=== PATIENT | male | born 1940 | race Caucasian/White ===

== ENCOUNTER → 2020-06-12 07:51 | Outpatient (CLI) | payer SELFPAY ==
[2020-06-07 10:09] VITALS: BMI 26.4
--- NOTE | 2020-06-12 07:52 | ECHOD_ITS ---
Version 2 Reason For Study: AFIB Procedure This was a 2D Doppler, Color Flow transthoracic echocardiogram. Exam performed in department. Left Ventricle Normal LV size. Left ventricular systolic function is normal. The estimated ejection fraction is 55 %. No regional wall motion abnormalities noted. Right Ventricle Normal RV size. Normal systolic function. Atria Normal left atrium. Normal right atrium. Mitral Valve Normal mitral valve. Mild (1+) eccentric mitral valve insufficiency. Tricuspid Valve Normal tricuspid valve. Mild (1+) tricuspid valve insufficiency. Pulmonary artery systolic pressure is 35 mmHg. Aortic Valve Trisinus/trileaflet aortic valve. Mild (1+) aortic valve insufficiency. Pericardium/Pleural No pericardial effusion. MMode/2D Measurements & Calculations LVIDd: 4.7 cm IVSd: 1.2 cm Ao root diam: 3.6 cm LVIDs: 3.1 cm LVPWd: 1.1 cm RVDd: 3.7 cm FS: 34.6 % LAV(MOD-sp4): 64.2 ml LA dimension(2D): 5.1 cm LA A4 area: 22.8 cm2 RA A4 area: 17.3 cm2 Time Measurements MV dec time: 0.25 sec Doppler Measurements & Calculations MV E max jaxon: 58.6 cm/sec Lat Peak E' Jaxon: 3.9 cm/sec Med Peak E' Jaxon: 5.4 cm/sec MV A max jaxon: 50.5 cm/sec E/E' lat: 15.1 E/E' med: 10.9 MV E/A: 1.2 Ao V2 max: 118.0 cm/sec AI max jaxon: 477.3 cm/sec LV V1 max: 82.7 cm/sec Ao max P.6 mmHg AI max P.2 mmHg LV V1 max P.7 mmHg Ao V2 mean: 90.5 cm/sec LV V1 mean P.4 mmHg Ao mean P.5 mmHg AI dec slope: 294.7 cm/sec2 LV V1 mean: 55.0 cm/sec Ao V2 VTI: 26.5 cm AI P1/2t: 474.3 msec LV V1 VTI: 16.7 cm PA V2 max: 135.7 cm/sec PI end-d jaxon: 115.8 cm/sec TR max jaxon: 280.1 cm/sec TR max P.4 mmHg Interpretation Summary Normal LV size. Left ventricular systolic function is normal. The estimated ejection fraction is 55 %. Mild (1+) eccentric mitral valve insufficiency. Mild (1+) aortic valve insufficiency. Pulmonary artery systolic pressure is 35 mmHg. Ordering Physician: Vin Porter Referring Physician: JOSH MORTENSEN Performed By: Thania Rodriguez, RDCS, RVT
== END ==
PROVIDERS: PCP Family Medicine; Referring Provider Internal Medicine Cardiovascular Disease; Visit Provider Internal Medicine Cardiovascular Disease
DX: I48.91 Unspecified atrial fibrillation (principal); I48.92 Unspecified atrial flutter; I34.0 Nonrheumatic mitral (valve) insufficiency
CPT/HCPCS: 93225; 93226; 93306

== ENCOUNTER → 2022-10-06 | Outpatient (CLI) | payer SELFPAY, OTHER ==
--- NOTE | 2022-10-06 11:30 | MRI_ITS ---
INDICATION: LBP, bilat radiculopathy-hips EXAMINATION: MRI - MR Spine Lumbar W/O Contrast TECHNIQUE: Multiplanar and multisequence MR images of the lumbar spine. IV Contrast Dosage and Agent: None. COMPARISON: None. FINDINGS: VERTEBRAE: Vertebral body heights are preserved. Normal vertebral bodies and posterior elements. VERTEBRAL ALIGNMENT: No spondylolisthesis. There is preservation of the normal lumbar lordosis. CORD: Normal position and signal intensity of the conus medullaris. There is mild osteoporotic compression fracture of T12 with 20% decreased height of vertebral body. There is bone marrow edema noted on STIR images. At L1-2, Endplate spondylosis. Decreased disc height and small circumferential disc bulge. Degenerative changes of the bilateral facet joints. Mild narrowing of the central canal and bilateral intervertebral neural foramina. At L2-3, postsurgical changes from prior laminectomy. There is 7 mm retrolisthesis. There is moderate narrowing of the left neural foramen and severe narrowing of the right neuroforamen due to degenerative changes in the facet joints and circumferential disc bulge. At L3-4, L4-5, L5-S1, Endplate spondylosis. Decreased disc height and small circumferential disc bulge. Degenerative changes of the bilateral facet joints. Moderate narrowing of the central canal and moderate to severe narrowing of the bilateral intervertebral neural foramina more prominent on the left side at L5-S1. There is 5 mm spondylolisthesis at L4-5. SOFT TISSUES: There is marked distention of the urinary bladder. MRI/Spine Lumbar (Routine) IMPRESSION: There is mild osteoporotic compression fracture of T12 with 20% decreased height of vertebral body. There is bone marrow edema noted on STIR images. At L2-3, postsurgical changes, moderate narrowing of the left neural foramen and severe narrowing of the right neuroforamen. At L3-4, L4-5, L5-S1, there is moderate narrowing of the central canal and moderate to severe narrowing of the bilateral intervertebral neural foramina more prominent on the left side at L5-S1. There is 5 mm spondylolisthesis at L4-5. Marked urinary bladder distention. Electronically Signed: Jamal Humphrey MD at 6:49 EDT ,
== END | disposition home or self-care (01) ==
PROVIDERS: PCP Family Medicine; Referring Provider Family Medicine; Visit Provider Family Medicine
DX: M54.16 Radiculopathy, lumbar region (principal); M43.16 Spondylolisthesis, lumbar region; M48.061 Spinal stenosis, lumbar region without neurogenic claudication
CPT/HCPCS: 72148